=== PATIENT | male | born 1985 | race Caucasian/White ===

== ENCOUNTER 2017-03-21 13:45 | Inpatient (IN) | payer OTHER ==
[~2017-03-21] VITALS: Ht 187.9 cm; Wt 72.3 kg
[2017-03-21 14:40] VITALS: BP 123/77
[2017-03-21 15:36] LABS: BILIRUBIN NEGATIVE (NEGATIVE); BLOOD TRACE-LYSED (NEGATIVE); CLARITY SL CLOUDY (CLEAR); COLOR YELLOW (YELLOW); GLUCOSE NEGATIVE (NEGATIVE); KETONE NEGATIVE (NEGATIVE); LEUKO ESTERASE NEGATIVE (NEGATIVE); NITRITE NEGATIVE (NEGATIVE); PROTEIN NEGATIVE (NEGATIVE); UROBILINOGEN 0.2 E.U./dl (0.2-1.0)
[2017-03-21 15:42] LABS: BASO % 0.4 % (0.0-1.0); EOS # 0.1 10*3/uL (0.0-0.4); EOS % 0.8 % (1.0-4.0); HEMATOCRIT 44.1 % (42.0-52.0); HEMOGLOBIN 14.8 g/dl (14.0-18.0); LYMPH # 1.7 10*3/uL (1.3-4.4); LYMPH % 18.2 % (27.0-41.0); MEAN CELL VOLUME 87.7 fl (80.0-94.0); MEAN CORPUSCULAR HGB 29.4 pg (27.0-31.0); MEAN CORPUSCULAR HGB CONC 33.6 g/dl (33.0-37.0); MEAN PLATELET VOLUME 9.7 fl (9.6-12.3); MONO # 0.5 10*3/uL (0.1-1.0); MONO % 5.6 % (3.0-9.0); NEUT % 74.8 % (47.0-73.0); PLATELET COUNT AUTOMATED 227 10*3/uL (130-400); RED BLOOD COUNT 5.03 10*6/uL (4.50-5.90); RED CELL DISTRI WIDTH 12.8 % (0-14.5); WHITE BLOOD COUNT 9.4 10*3/uL (4.8-10.8)
[2017-03-21 15:43] LABS: URINE AMPHETAMINES < 1000 (1000ng/ml); URINE BARBITURATES < 200 (200ng/ml); URINE COCAINE < 300 (300ng/ml)
[2017-03-21 15:50] LABS: PROTHROMBIN TIME 10.8 SECONDS (9.0-12.4)
[2017-03-21 15:57] LABS: ALBUMIN 3.7 gm/dl (3.1-4.5); ALKALINE PHOSPHATASE 109 U/L (45-117); BILIRUBIN, TOTAL 0.4 mg/dl (0.2-1.0); BUN 11 mg/dl (7-24); CARBON DIOXIDE 29 mmol/L (21-32); CHLORIDE 100 mmol/L (98-107); EST GLOM FILT AFRICAN AMERICAN > 60 ml/min; GLUCOSE 95 mg/dL (65-99); POTASSIUM 4.4 mmol/L (3.5-5.1); SGOT/AST 18 IU/L (3-35); SGPT/ALT 24 U/L (12-78); SODIUM 137 mmol/L (136-145); TOTAL PROTEIN 7.8 gm/dL (6.4-8.2)
[2017-03-21 16:00] VITALS: BP 110/62
[2017-03-21 16:02] LABS: BACTERIA 2+; EPITHELIAL CELLS 0-2.; RBC 0-2 rbc/hpf (0-2); URINE REFLEX COMMENT YES (NO); WBC 0-2 wbc/hpf (0-5)
[2017-03-21 20:00] VITALS: BP 113/55
[2017-03-22] VITALS: BP 112/61
[2017-03-22 04:00] VITALS: BP 110/60
[2017-03-22 08:00] VITALS: BP 122/62
[2017-03-22 12:00] VITALS: BP 113/64
[2017-03-22 16:00] VITALS: BP 113/70
[2017-03-22 20:00] VITALS: BP 111/59
[2017-03-23] VITALS: BP 102/61
[2017-03-23 08:00] VITALS: BP 99/55
[2017-03-23 12:00] VITALS: BP 104/60
[2017-03-23 16:00] VITALS: BP 123/69
[2017-03-23 20:00] VITALS: BP 112/59
[2017-03-24] VITALS: BP 105/59
[2017-03-24 06:39] LABS: BASO # 0.1 10*3/uL (0.0-0.1); BASO % 0.5 % (0.0-1.0); EOS # 0.2 10*3/uL (0.0-0.4); EOS % 1.6 % (1.0-4.0); HEMATOCRIT 41.6 % (42.0-52.0); HEMOGLOBIN 13.9 g/dl (14.0-18.0); LYMPH # 2.6 10*3/uL (1.3-4.4); LYMPH % 27.9 % (27.0-41.0); MEAN CELL VOLUME 87.8 fl (80.0-94.0); MEAN CORPUSCULAR HGB 29.3 pg (27.0-31.0); MEAN CORPUSCULAR HGB CONC 33.4 g/dl (33.0-37.0); MEAN PLATELET VOLUME 9.7 fl (9.6-12.3); MONO # 0.6 10*3/uL (0.1-1.0); MONO % 6.1 % (3.0-9.0); NEUT # 5.8 10*3/uL (2.3-7.9); NEUT % 63.6 % (47.0-73.0); PLATELET COUNT AUTOMATED 218 10*3/uL (130-400); RED BLOOD COUNT 4.74 10*6/uL (4.50-5.90); RED CELL DISTRI WIDTH 12.7 % (0-14.5); WHITE BLOOD COUNT 9.2 10*3/uL (4.8-10.8)
[2017-03-24 06:58] LABS: EST GLOM FILT AFRICAN AMERICAN > 60 ml/min
[2017-03-24 08:00] VITALS: BP 119/82
[2017-03-24] MEDS ORDERED: ZOFRAN 4 MG ED2 TAB PO (10:56)
[2017-03-24] MEDS ORDERED: ATARAX,VISTARIL50 MG PO (10:56)
[2017-03-26 08:11] LABS: HEPATITIS C VIRUS ANTIBODY 0.2 s/co (0.0-0.9)
== END 2017-03-24 11:12 | disposition home or self-care (01) | DRG 897 ==
LOC: 5E 13:45
PROVIDERS: Family Medicine; Internal Medicine; Internal Medicine Hospice and Palliative Medicine
DX: F11.23 Opioid dependence with withdrawal (principal); D72.810 Lymphocytopenia; Z81.8 Family history of other mental and behavioral disorders; Z84.89 Family history of other specified conditions; Z71.6 Tobacco abuse counseling